=== PATIENT | female | born 1980 | race Caucasian/White ===

== ENCOUNTER 2019-10-11 08:44 | Day surgery (SDC) | payer MEDICAID, SELFPAY ==
[2019-10-11] VITALS (8 sets, daily range): BP systolic 107–125; BP diastolic 57–91; PULSE 60–70; RESP 15–16; TEMP 36.5–36.8; O2SAT 100; BMI 29.9
--- NOTE | 2019-10-11 07:41 | PCM.HP.OB ---
- Problem List (1) Menorrhagia Status: Acute (2) Uterine polyp Status: Acute History Date of Admission: 10/11/19 History of this : This is a 39 year-old who has worsening menorrhagia with a regular cycle over the last 1 year. Pelvic US shows an endometrial polyp. She desires polypectomy. Medical History: Medical History (Last Updated 10/11/19 @ 07:43 by Thao Alex DO) Asthma J45.909 Cervical dysplasia N87.9 Surgical History: Surgical History (Last Updated 10/11/19 @ 07:43 by Thao Alex DO) History of loop electrical excision procedure (LEEP) Z98.890 History of myringotomy Z98.890 History of rhinoplasty Z98.890 History of tubal ligation Z98.51 Allergies codeine Allergy (Verified 09/13/19 10:00) seizure latex Allergy (Verified 09/13/19 10:00) Anaphylaxis Penicillins Allergy (Verified 09/13/19 10:00) Hives aspirin [ASA] Adverse Reaction (Verified 09/13/19 10:00) sensitivity Home Medications: Home Medications Albuterol IH (ProAir) [Proair Hfa (SP)Vent Pts] 1 - 2 puff INHALATION Q6H PRN PRN 09/13/19 Budesonide/Formoterol Fumarate [Symbicort 160-4.5 Mcg Inhaler] 1 puff IH QHS 09/13/19 Tincure 6 - 8 drp PO DAILY 09/13/19 Smoking Status: Never smoker History Past Pregnancies: Past Pregnancies Delivery Date Name GA/ Weeks Outcome Route Wt Infant Sex Labor Length Anesthesia Delivery Location Provider FOB Review of Systems Constitutional: Denies: Fever Eyes: Denies: Blurred vision HEENT: Denies: Head Aches, Visual Changes Cardiovascular: Denies: Chest Pain Respiratory: Denies: Cough, Shortness of Breath Gastrointestinal: Denies: Abdominal Pain Genitourinary: Denies: Dysuria Gynecological: Reports: Excessively long or heavy periods Skin: Denies: Dryness Psychiatric: Denies: Anxiety, Depression Physical Exam General: Alert, No apparent distress HEENT: Atraumatic Cardiovascular: Regular rate Lungs: Clear to auscultation Abdomen: Soft, Non Tender - : Extremities:: No edema Neurological: Neuro grossly intact Assessment/Plan All Active Problems (Last Updated 10/11/19 @ 07:43 by Thao Alex DO) Menorrhagia (Acute) Uterine polyp (Acute) This is a 39 year-old with menorrhagia and a polyp noted on US. She understands that a polypectomy may now improve her bleeding. She also understands that there may not be a polyp present at the time of surgery as this was all discussed with patient. Reviewed alternative for an in office End[facility]. Discussed r/b/a of a hysteroscopy, polypectomy, D&C with the patient and she requests to proceed with the surgery.
[2019-10-11 09:19] LABS: Hematocrit 37.4 % (37-47); Hemoglobin 11.8 g/dL (12.0-15.0); Mean Corp Hgb Conc 31.6 g/dL (32-36); Mean Corpuscular Volume 91.9 fL (81-99); Mean Platelet Vol. 9.2 fl (6.2-12.0); Platelet Count 336 K/mm3 (150-450); RBC Distribution Width CV 13.9 % (11.6-14.6); RBC Distribution Width SD 46.9 fl (35.1-43.9); Red Blood Count 4.07 M/mm3 (4.2-5.4)
[2019-10-11] MEDS: Lactated Ringers 1,000 ML 100 ML IV (09:31)
--- NOTE | 2019-10-11 10:25 | EMB_PTH ---
PATIENT: BABAR WALKER [place] [facility] [id number] AGE/SX: 39/F ROOM: RE10/11/[address]: Dr. Thao Alex DO : 1980 BED: DIS: 10/11/2019 SPEC #: [id number] RECD: 10/11/19 14:25 STATUS: LEMUEL CUADRA #: [id number] LAUREN: 10/11/19 10:[address]: Thao Alex DEPT: SURGICAL PATHOLOGY RECD BY: Mc Ferrell ENTERED: 10/12/19 09:16 SP TYPE: ENDOM BX/C CLARK DR: No Primary Care Phys Tissues: Endometrium, NOS Procedures: Surgery Specimen Level IV HEADER OPERATION: Hysteroscopy, dilation and curettage, polypectomy PRE-OP DIAGNOSIS: Menorrhagia, uterine polyp TISSUE SUBMITTED: Endometrial curettings and polyp MICROSCOPIC DIAGNOSIS Endometrial curettings and polyp: Proliferative endometrium. Fragments of benign ecto- and endocervical mucosa with chronic inflammation. Fragments of blood clots. SJ:pinky 10/15/19 MICROSCOPIC DESCRIPTION Slides are reviewed. GROSS DESCRIPTION Received in fixative is one container labeled with the patient's name and designated endometrial curettings and polyp. The specimen consists of multiple irregular fragments of red-persaud soft tissue that in aggregate measure 5 x 3 x 0.2 cm. The specimen is totally submitted in two cassettes. / AM:pinky 10/12/19 TC:5 [facility]: [id number]
--- NOTE | 2019-10-11 11:41 | DCINST_ITS ---
Discharge Diet: No Restrictions Discharge Activity: Return to Normal Activity, May Drive, May Shower May resume sexual activity in: 4-6 weeks Weight Bearing Status: Full weight bearing Lifting Restrictions: None Call your doctor if you observe: Fever of 101 or Higher, Inability to urinate, Inability to have a bowel movement, Using more than one pad per hour, Shortness of breath, Dizziness, Fainting spells, Chest pain, Increased palpitations (irregular heartbeat), Calf discomfort, Uncontrolled pain Allergies/Adverse Reactions: Allergies codeine Allergy (Verified 10/11/19 08:58) seizure latex Allergy (Verified 10/11/19 08:58) Anaphylaxis Penicillins Allergy (Verified 10/11/19 08:58) Hives aspirin [ASA] Adverse Reaction (Verified 10/11/19 08:58) sensitivity Medications to take at Discharge Albuterol IH (ProAir) [Proair Hfa (SP)Vent Pts] 1 - 2 puff INHALATION Q6H PRN PRN 09/13/19 Budesonide/Formoterol Fumarate [Symbicort 160-4.5 Mcg Inhaler] 1 puff IH QHS 09/13/19 Tincure 6 - 8 drp PO DAILY 09/13/19 Orders to be completed after discharge: Type & Screen Time Frame: 10/11/19, Facility: [facility] [place], Location: [facility] Primary Care Physician: Care Physician,No Primary [Primary Care Provider] - Test Results: Test results from this visit will be discussed in further detail at your follow- up appointment, if applicable. Please Follow Up With: Thao Alex DO When: 1 week
--- NOTE | 2019-10-11 11:42 | OP.PCM_ITS ---
Problem List (1) Menorrhagia Status: Acute (2) Uterine polyp Status: Acute Report of Operation Date of Procedure: 10/11/19 Pre-Operative Diagnosis: Menorrhagia with regular cycle, uterine polyp noted on US Post-Operative Diagnosis: Menorrhagia with regular cycle, uterine polyp Surgery/Procedure Performed:: Hysteroscopy, D&C, polypectomy Description of Surgical Findings:: Normal-appearing uterine cavity with bilateral tubal ostia visualized. The endometrium was normal-appearing. There was a posterior polyp noted. Very good descent of the uterus and cervix into the vagina. electronic systems security assessment: None Type of Anesthesia:: MAC Special Medications: None Specimen's removed: Poylp and endometrial curettings Drains: None Estimated Blood Loss (mL): 50 cc Description of Procedure: The patient was prepped and draped in the usual sterile fashion in dorsal lithotomy position using yellowfin stirrups. MAC anesthesia was found to be adequate. A weighted speculum was placed in the vagina to expose the cervix. The anterior lip of the cervix was grasped with a single-tooth tenaculum. The cervix was serially dilated to accommodate the hysteroscope. The hysteroscope was then advanced into the uterus and the uterus was distended with normal saline. A polyp was noted posteriorly. The rest of the uterine cavity was normal-appearing and bilateral tubal ostia were visualized. Using the Symphion device the posterior polyp was removed. The Symphion hysteroscope was then removed. A sharp curettage was performed. The polyp and endometrial curettings were sent to pathology for review. Hemostasis was noted. All instruments removed from the vagina. Instrument counts were correct. The patient was taken to the recovery room in stable condition. Grafts/Implants Used: None - Complications None - Admit VTE Documentation VTE Present on Admission: No VTE Mechan Device [place] [facility] [place] Prophylaxis ordered?: No
== END 2019-10-11 14:50 | disposition home or self-care (01) ==
LOC: SDC 08:45 → AC 08:47
PROVIDERS: Referring Provider Obstetrics & Gynecology; Visit Provider Obstetrics & Gynecology
PROC: 0UDB8ZZ Extraction of Endometrium, Via Natural or Artificial Opening Endoscopic (ICD-10-PCS; CPT 58558; principal; 2019-10-11 10:15)
DX: N71.1 Chronic inflammatory disease of uterus (principal); N84.0 Polyp of corpus uteri; N92.0 Excessive and frequent menstruation with regular cycle; J45.909 Unspecified asthma, uncomplicated; Z79.51 Long term (current) use of inhaled steroids
CPT/HCPCS: 58558; 36415; 85027; 86850; 86900; 86901; 88305; J7120; J2405